=== PATIENT | female | born 1985 | race Caucasian/White ===

== ENCOUNTER 2017-02-17 15:46 | Observation (INO) | payer BC ==
[2017-02-17] MEDS ORDERED: BETAMETHASONE IM SYRINGE IM ONE (16:22)
[2017-02-17] MEDS ORDERED: LR 1,000 ML IV SCH (16:30)
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
--- NOTE | 2017-02-18 10:39 | OBPROG ---
OBG Labor Progress Note Assessment/Plan: Assessment: IUP at 37 wks oligo with improved fluid today. Cat I tracing Plan: D/C home 02/18/17 10:36 Subjective: Pt doing fine. GFM, Freq BH but no change for wks. No bld - no LOF [place] Current Contraction Pattern: Regular, Other (Specify) (BH occas) FHR (bpm): 120 FHR Pattern Variability: Moderate FHR Category: 1 Membranes: Intact - Physical Exam General Appearance: WD/WN Abdomen: soft, other (gravid uterus, BH noted on monitor, CAT I tracing with baseline 120s with accels and mod variability) Extremities: non-tender Skin: warm/dry Neuro/Psych: normal mood/affect Oxytocin Orders Assessment - Pre-Induction/Augmentation Assessment Gestational Age: 36 week(s) and 6 day(s) ICD10 Worksheet Patient Problems: Problems Problem Status Onset Oligohydramnios in third trimester Acute
== END 2017-02-18 11:00 | disposition home or self-care (01) ==
LOC: FLD 15:46
PROVIDERS: ADMIT Obstetrics & Gynecology; ATTEND Obstetrics & Gynecology
DX: O41.03X0 Oligohydramnios, third trimester, not applicable or unspecified (principal); O99.013 Anemia complicating pregnancy, third trimester; D64.9 Anemia, unspecified; Z3A.36 36 weeks gestation of pregnancy
CPT/HCPCS: 59025; 76816; G0378; J0702

== ENCOUNTER 2017-02-23 06:12 | Inpatient (IN) | payer BC ==
[2017-02-23] MEDS ORDERED: OLIVE OIL 118 ML BTL MISC PRN (06:38)
[2017-02-23] MEDS ORDERED: OXYTOCIN/RINGERS LACTATE 1,000 ML IV PRN (06:38)
[2017-02-23] MEDS ORDERED: EPSOM SALT 454 GM TP PRN (06:38)
[2017-02-23] MEDS ORDERED: TERBUTALINE SULFATE 1 MG/ML VIAL IV PRN (06:38)
[2017-02-23 06:54] LABS: % IMMATURE GRANULYOCYTES 0.4 % (0.0-1.1); ABSOLUTE IMMATURE GRANULOCYTES 0.04 10^3/uL (0.00-0.10); ADD DIFF? NO; ADD MORPH? NO; ADD SCAN? NO; ATYPICAL LYMPHOCYTE FLAG 0 (0-99); FRAGMENT RBC FLAG 0 (0-99); HEMATOCRIT 41.1 % (38.0-47.0); LEFT SHIFT FLG 0 (0-99); LIPEMIA HEMOLYSIS FLAG 90 (0-99); MEAN CELL HEMOGLOBIN 33.6 pg (27.9-34.1); MEAN CELL HEMOGLOBIN CONCENTR. 36.5 g/dL (32.4-36.7); MEAN CELL VOLUME 91.9 fL (81.5-99.8); MEAN PLATELET VOLUME 11.1 fL (8.7-11.7); PLATELET CLUMPS FLAG 10 (0-99); PLATELET COUNT 249 10^3/uL (150-400); RED BLOOD CELL COUNT 4.47 10^6/uL (4.18-5.33); RED CELL DISTRIBUTION WIDTH 12.1 % (11.5-15.2)
[2017-02-23] MEDS: LR 1,000 ML IV PRN (08:30)
[2017-02-23] MEDS ORDERED: OXYTOCIN/LR *STANDARD DOSE PROTOCOL IV SCH (09:00)
[2017-02-23] MEDS ORDERED: LR 500 ML IV PRN (13:02)
[2017-02-23] MEDS ORDERED: OXYTOCIN/RINGERS LACTATE 500 ML IV SCH (13:30)
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
--- NOTE | 2017-02-23 18:41 | OBPROG ---
OBG Labor Progress Note Assessment/Plan: Assessment: 31 y/o @ 37 5/7 wks for IOL secondary to oligo Plan: Wilburn bulb removed by RN NELLY /-2 Discussed with unfavorable cervix and Pitocin at 20 mu/min, recommend cervical ripening at this time Will give Cytotec 50 mg orally and then 25 mg q 4hrs Pt may have regular diet FHTs - Cat I tracing Continuous monitoring overnight Start Pitocin again in am 02/2402/23/17 18:38 Subjective: Pt has some cramping. Some discomfort with varicosities in vagina and inguinal hernia. Objective: 02/23/17 06:45 Patient ABO/Rh O POSITIVE 02/23/17 06:45 - SVE Dilation (cm): 1 Effacement (%): 50 Station: -2 Wilson Current Contraction Pattern: Irregular FHR (bpm): 140 FHR Pattern Variability: Moderate FHR Category: 1 Membranes: Intact Oxytocin Orders Assessment - Pre-Induction/Augmentation Assessment Indication: Oligo Presentation: Vertex Gestational Age: 37 week(s) and 5 day(s) Gestational Age Determined By: Ultrasound (confirmesd by first trimester u/s), Last Menstral Period Estimated Weight: 2501-3400g Membrane Status: Intact Current Contraction Pattern: Irregular ICD10 Worksheet Patient Problems: Problems Problem Status Onset Oligohydramnios in third trimester Acute
[2017-02-23] MEDS ORDERED: ZOLPIDEM TARTRATE 5 MG TAB PO PRN (18:56)
[2017-02-23] MEDS ORDERED: MISOPROSTOL 100 MCG TAB PO ONE (19:15)
[2017-02-23] MEDS: MISOPROSTOL 100 MCG TAB PO SCH (23:35)
[2017-02-24] MEDS: LR 1,000 ML IV PRN (07:39)
--- NOTE | 2017-02-24 08:27 | OBPROG ---
OBG Labor Progress Note Assessment/Plan: Assessment:cat1 fhr pain well managed contractions q2-3 minutes apart exam 2-/-1 cephalic pitocin per protocol Plan:discussed pain medication as needed, pitocin per ptoocol, consult physician as needed 02/24/17 08:24 Subjective: Feeling cramping with the contractions Objective: 02/23/17 06:45 Patient ABO/Rh O POSITIVE 02/23/17 06:45 - SVE Dilation (cm): 2 Effacement (%): 80 Station: -1 - Physical Exam General Appearance: WD/WN, alert, no apparent distress Estimated Weight: 2501-3400g Extremities: normal range of motion Skin: normal color, warm/dry Neuro/Psych: no motor/sensory deficits, alert, normal mood/affect, oriented x 3 Oxytocin Orders Assessment - Pre-Induction/Augmentation Assessment Presentation: Vertex Gestational Age: 37 week(s) and 5 day(s) Estimated Weight: 2501-3400g ICD10 Worksheet Patient Problems: Problems Problem Status Onset Oligohydramnios in third trimester Acute
--- NOTE | 2017-02-24 13:33 | OBPROG ---
OBG Labor Progress Note Assessment/Plan: Assessment:cat1 fhr pain well managed contractions q2-3 minutes apart exam 2-/-1 cephalic pitocin per protocol at 18 mu arom clear fluid no change to cervical exam Plan:pitocin per protocol 02/24/17 08:24 02/24/17 13:30 Subjective: I am feeling more regular contractions. My pain is greater since the last time you checked me Objective: 02/23/17 06:45 Patient ABO/Rh O POSITIVE 02/23/17 06:45 - SVE Dilation (cm): 2 Effacement (%): 80 Station: -1 - Procedures Non-surgical Procedures: Amniotomy - Physical Exam Estimated Weight: 2501-3400g Oxytocin Orders Assessment - Pre-Induction/Augmentation Assessment Presentation: Vertex Gestational Age: 37 week(s) and 5 day(s) Estimated Weight: 2501-3400g ICD10 Worksheet Patient Problems: Problems Problem Status Onset Oligohydramnios in third trimester Acute
[2017-02-24] MEDS ORDERED: fentaNYL 100 MCG/2 ML INJ ONE ×2 (14:18→14:49)
[2017-02-24] MEDS ORDERED: fentaNYL 2MCG/ML/BUP 0.1% RTU 100 ML BAG EP ONE (14:48)
[2017-02-24] MEDS ORDERED: PHENYLEPHRINE HCL 100 MCG/ML SYR ONE (14:49)
[2017-02-24] MEDS ORDERED: BUPIVACAINE 0.25% 30 ML SDV ONE (14:49)
[2017-02-24] MEDS ORDERED: fentaNYL 100 MCG/2 ML INJ IVP ONE (14:49)
[2017-02-24] MEDS ORDERED: ONDANSETRON 4 MG/2 ML VIAL IVP PRN (15:44)
[2017-02-24] MEDS ORDERED: PHENYLEPHRINE HCL 100 MCG/ML SYR IVP PRN (15:44)
[2017-02-24] MEDS ORDERED: LR 500 ML IV SCH (16:00)
[2017-02-24] MEDS ORDERED: fentaNYL 2MCG/ML/BUP 0.1% RTU 100 ML EP SCH (16:00)
--- NOTE | 2017-02-24 17:26 | PREANESOB ---
Obstetric Pre-Anesthesia Info - General Info Proposed Procedure: Labor and delivery with pitocin. : 1 Para: 0 WBD: 37 - Info Status: Full Term Monitors: External FHR Baseline (bpm): 140 FHR Pattern: Reassuring - Labor Status Cervical Dilation per last OB SVE: 2 Station per last OB SVE: -1 Pitocin: In Use Indications for Labor Analgesia: Induction of Labor, Pain Control Labor Epidural: Proposed (Oligohydramnios.) Anesthesia ROS: History of oral surgery. Allergies/Adverse Reactions: Allergy/AdvReac Type Severity Reaction Status Date / Time No Known Allergies Allergy Unverified 06/19/11 22:35 Visit Medications: Generic Name Dose Route Start Last Admin Trade Name Freq PRN Reason Stop Dose Admin Diphenhydramine HCl 25 - 50 mg 02/24/17 15:44 Benadryl Injection IVP 08/23/17 15:43 Q6HRS PRN Itching Lactated Ringer's 1,000 mls @ 0 mls/hr 02/23/17 06:38 02/24/17 07:39 Lr IV 08/22/17 06:37 1,000 mls PRN PRN Administration SEE PROTOCOL CONDITIONS Protocol Per Protocol Oxytocin/Lactated Ringer's 1,000 mls @ 150 mls/hr 02/23/17 06:38 Pitocin 20 Units/Lr (Premix) IV PRN PRN Post- bleeding Oxytocin/Lactated Ringer's 500 mls @ 0 mls/hr 02/23/17 09:00 02/23/17 08:50 Pitocin 30 Units/Lr (Premix) IV 08/22/17 08:59 500 mls CONT MAKEDA Administration Protocol Per Protocol Lactated Ringer's 500 mls @ 500 mls/hr 02/23/17 13:02 Lr IV PRN PRN Maternal Hypotension Oxytocin/Lactated Ringer's 500 mls @ 0 mls/hr 02/23/17 13:30 02/24/17 07:39 Pitocin 30 Units/Lr (Premix) IV 08/22/17 13:29 500 mls CONT MAKEDA Administration Protocol Per Protocol Fentanyl/Bupivacaine HCl 100 mls @ 0 mls/hr 02/24/17 16:00 Fentanyl/Bupivacaine/Ns 2 Mcg/Ml 0.1% (Premix EP 07/02/17 15:59 CONT MAKEDA Protocol As Directed Lactated Ringer's 500 mls @ 0 mls/hr 02/24/17 16:00 Lr IV 08/23/17 15:59 CONT [facility] As Directed Ibuprofen 600 mg 02/23/17 06:38 Motrin PO 08/22/17 06:37 Q6HRS PRN post , inflammation Magnesium Sulfate 454 gm 02/23/17 06:38 Epsom Salt TP 08/22/17 06:37 PRN PRN perineal discomfort [place] Oil 118 ml 02/23/17 06:38 Sweet Oil MISC 08/22/17 06:37 ONCE PRN preneal massage Ondansetron HCl 4 mg 02/24/17 15:44 Zofran IVP 08/23/17 15:43 Q4HRS PRN Nausea/Vomiting, Can't Take PO Phenylephrine HCl 100 mcg 02/24/17 15:44 Neosynephrine IVP 08/23/17 15:43 .Q2M PRN Hypotension Terbutaline Sulfate 0.25 mg 02/23/17 06:38 Brethine IV 08/22/17 06:37 ONCE PRN Tachysystole Zolpidem Tartrate 5 mg 02/23/17 18:56 02/23/17 21:35 Ambien PO 08/22/17 18:55 5 mg HS PRN Administration Sleep/Insomnia Discontinued Medications Generic Name Dose Route Start Last Admin Trade Name Freq PRN Reason Stop Dose Admin Bupivacaine HCl Confirm 02/24/17 14:49 Sensorcaine 0.25% Sdv Administered 02/24/17 14:50 Dose 30 ml .ROUTE .STK-MED ONE Fentanyl Confirm 02/24/17 14:18 Sublimaze Administered 02/24/17 14:19 Dose 100 mcg .ROUTE .STK-MED ONE Fentanyl Confirm 02/24/17 14:49 Sublimaze Administered 02/24/17 14:50 Dose 100 mcg .ROUTE .STK-MED ONE Fentanyl 50 mcg 02/24/17 14:49 Sublimaze IVP 02/24/17 14:50 ONCE ONE Fentanyl/Bupivacaine HCl Confirm 02/24/17 14:48 Fentanyl/Bupivacaine/Ns 2 Mcg/Ml 0.1% (Premix Administered 02/24/17 14:49 Dose 100 ml EP .STK-MED ONE Misoprostol 25 mcg 02/23/17 23:15 02/23/17 23:35 Cytotec PO 02/24/17 11:16 25 mcg Q4H MAKEDA Administration Misoprostol 50 mcg 02/23/17 19:15 02/23/17 19:30 Cytotec PO 02/23/17 19:16 50 mcg ONCE ONE Administration Phenylephrine HCl Confirm 02/24/17 14:49 Neosynephrine Administered 02/24/17 14:50 Dose 1,000 mcg .ROUTE .STK-MED ONE - Anesthesia History Response to Local Anesthetics: Normal Anesthesia & Operative History: No Prior Problems Family Anesthesia History: Negative - Social History Substance Use/Abuse: Denies - Focused Exam Blood Pressure: 110/57 Heart Rate: 77 Height/Weight (Nursing): Height 177.8 cm Weight 75.977 kg Physical Exam: Within normal limits. ASA Status: II Labs: 02/23/17 06:45 Patient ABO/Rh O POSITIVE 02/23/17 06:45 - Plan Anesthetic Plan: CSE Consent Signed and on Chart: Yes Patient/Guardian Understands and Agrees to Plan: Yes
--- NOTE | 2017-02-24 17:30 | POSTANESTH ---
Post Anesthetic Evaluation Cardiovascular Status: Normal, Stable, Similar to Pre-Op Cond Respiratory Status: Normal, Stable, Similar to Pre-op Cond. Level of Consciousness/Mental Status: Can Participate in Eval, Alert and Oriented Pain Control: Adequate, Prn Tx Ordered Nausea/Vomiting Control: Adequate, Prn Tx Ordered Complications Possibly Related to Anesthesia: None Noted
--- NOTE | 2017-02-24 17:42 | OBPROG ---
OBG Labor Progress Note Assessment/Plan: Assessment:cat1 fhr pain well managed contractions q2-3 minutes apart exam 6/100/0 cephalic pitocin per protocol at 10 mu/ turned down tachsystole/ tachcardia clear fluid epidural for pain relief working well iupc adequete contractions Plan:pitocin per protocol 02/24/17 08:24 02/24/17 13:30 02/24/17 17:40 Objective: 02/23/17 06:45 Patient ABO/Rh O POSITIVE 02/23/17 06:45 Temp Pulse Resp BP Pulse Ox 77 110/57 L 02/24/17 17:29 02/24/17 17:29 - SVE Dilation (cm): 6 Effacement (%): 100 Station: 0 - Physical Exam Estimated Weight: 2501-3400g Oxytocin Orders Assessment - Pre-Induction/Augmentation Assessment Presentation: Vertex Gestational Age: 37 week(s) and 5 day(s) Estimated Weight: 2501-3400g ICD10 Worksheet Patient Problems: Problems Problem Status Onset Oligohydramnios in third trimester Acute
--- NOTE | 2017-02-24 18:04 | OBPROG ---
OBG Labor Progress Note Assessment/Plan: Assessment:cat1 fhr pain well managed contractions q2-3 minutes apart exam 9/100/0 cephalic pitocin per protocol at 5mu clear fluid continues from vagina epidural for pain relief working well iupc adequete contractions Plan:consulted with dr. king with change in cervix 02/24/17 08:24 02/24/17 13:30 02/24/17 17:40 02/24/17 18:03 Objective: 02/23/17 06:45 Patient ABO/Rh O POSITIVE 02/23/17 06:45 Temp Pulse Resp BP Pulse Ox 77 110/57 L 02/24/17 17:29 02/24/17 17:29 - SVE Dilation (cm): 9 Effacement (%): 100 Station: 0 - Procedures Non-surgical Procedures: Amniotomy - Physical Exam Estimated Weight: 2501-3400g Oxytocin Orders Assessment - Pre-Induction/Augmentation Assessment Presentation: Vertex Gestational Age: 37 week(s) and 5 day(s) Estimated Weight: 2501-3400g ICD10 Worksheet Patient Problems: Problems Problem Status Onset Oligohydramnios in third trimester Acute
--- NOTE | 2017-02-24 20:09 | OBPROG ---
OBG Labor Progress Note Assessment/Plan: Assessment:cat2 fhr pain well managed contractions q4-6 minutes apart exam 10/100/+1 cephalic pitocin per protocol at 5mu/ incresing mvus not adequete clear fluid continues from vagina epidural for pain relief working well Plan:expectant management laboring down 02/24/17 08:24 02/24/17 13:30 02/24/17 17:40 02/24/17 18:03 02/24/17 20:08 Objective: 02/23/17 06:45 Patient ABO/Rh O POSITIVE 02/23/17 06:45 Temp Pulse Resp BP Pulse Ox 77 110/57 L 02/24/17 17:29 02/24/17 17:29 - SVE Dilation (cm): 10 Effacement (%): 100 Station: +1 - Procedures Non-surgical Procedures: Amniotomy - Physical Exam Estimated Weight: 2501-3400g Oxytocin Orders Assessment - Pre-Induction/Augmentation Assessment Presentation: Vertex Gestational Age: 37 week(s) and 5 day(s) Estimated Weight: 2501-3400g ICD10 Worksheet Patient Problems: Problems Problem Status Onset Oligohydramnios in third trimester Acute
[2017-02-24] MEDS ORDERED: HYDROCORTISONE 0.5% CREAM TP PRN (22:40)
[2017-02-24] MEDS ORDERED: HYDROCODONE/APAP 5/325 TAB PO PRN (22:40)
[2017-02-24] MEDS ORDERED: SIMETHICONE 80 MG TAB CHEW PO PRN (22:40)
--- NOTE | 2017-02-24 22:40 | OBDEL ---
Info Type: Vaginal GBS+: No Indications for Delivery: Oligohydramnios Vaginal Delivery - Labor and Delivery Onset of Contractions Date: 02/24/17 Onset of Contractions Time: 08:50 Onset of Contractions Type: Induced Rupture of Membranes Date: 02/24/17 Rupture of Membranes Time: 13:27 Rupture of Membranes Type: Artificial Amniotic Fluid Color: Clear Dilation Complete Date: 02/24/17 Dilation Complete Time: 19:40 Placenta Delivery Date: 02/24/17 Placenta Delivery Time: 22:15 Total Hours of Labor: 13 Non-surgical Procedures: Amniotomy Laceration: Other (Specify) (bilateral periurethral repaired the right) Repair: 4-0, Vicryl Vaginal Sponge Count Correct: Yes Vaginal Sweep Performed: Yes EBL: 300 Delivery Events: None - Medications Labor Augmentation/Induction Methods Used: Pitocin, Misoprostol, Wilburn Bulb Labor Augmentation/Induction Indication: Medical (oligohydramnios) Data [place] Delivery Date: 02/24/17 Delivery Time: 19:40 Sex of Infant: Male Score (1 Min): 8 Score (5 Min): 9 ICD10 Worksheet Patient Problems: Problems Problem Status Onset Oligohydramnios in third trimester Acute
[2017-02-24] MEDS: IBUPROFEN 600 MG TAB PO PRN (23:03)
[2017-02-24] MEDS: MISOPROSTOL 100 MCG TAB PO SCH (23:35)
[2017-02-25 03:16] VITALS: RESP 16
[2017-02-25] MEDS: IBUPROFEN 600 MG TAB PO PRN ×4 (05:14→23:49)
--- NOTE | 2017-02-25 07:01 | OBPP ---
Progress Note Assessment/Plan: Assessment: in and out catheter after delivery 1800cc obtained call from nurse on pp at 0600 needing to cath patient again unable to void alvarado placed 1800 cc out over 30 minutes. will observe output over the next hour to see amount Plan:alvarado, routine output assessement/ report to dr. martinez on poc 02/24/17 08:24 02/24/17 13:30 02/24/17 17:40 02/24/17 18:03 02/24/17 20:08 02/25/17 06:58 Objective: 02/24/17 06:30 Patient ABO/Rh O POSITIVE 02/23/17 06:45 Temp Pulse Resp BP Pulse Ox 36.9 C 56 L 16 115/72 02/25/17 03:10 02/25/17 03:10 02/25/17 03:10 02/25/17 03:10
--- NOTE | 2017-02-25 07:38 | OBPP ---
Progress Note Assessment/Plan: Assessment: 1) s/p PPD # 1 - pt is stable Plan: Continue routine pp care To keep alvarado in place for now; pt unable to void likely secondary to swelling from varicosity and delivery Output - 1800 cc this am Ice pack to bottom prn Will cont to closely monitor consult today 02/25/17 07:42 Subjective: Pt seen and examined. Doing well, with no complaints. She is having some cramping, relief with Motrin. Moderate lochia. Alvarado in place. Passing flatus. No BM. BF with some difficulty. Objective: 02/24/17 06:30 Patient ABO/Rh O POSITIVE 02/23/17 06:45 Temp Pulse Resp BP Pulse Ox 36.9 C 56 L 16 115/72 02/25/17 03:10 02/25/17 03:10 02/25/17 03:10 02/25/17 03:10 Uterine Position/Fundal Height: Umbilicus -2 Uterine Tone: Firm Physical Exam - Physical Exam General Appearance: WD/WN, alert, no apparent distress Respiratory: lungs clear, normal breath sounds Cardiac/Chest: regular rate, rhythm Abdomen: normal bowel sounds, non-tender, soft, flatus (+) Extremities: non-tender, normal inspection Skin: normal color, warm/dry Neuro/Psych: alert, normal mood/affect, oriented x 3
[2017-02-25] MEDS: DOCUSATE SODIUM 100 MG CAP PO PRN (09:12)
[2017-02-25] MEDS: ACETAMINOPHEN 325 MG TAB PO PRN ×3 (14:33→23:49)
[2017-02-25 19:57] VITALS: O2SAT 100
[2017-02-26] MEDS: ACETAMINOPHEN 325 MG TAB PO PRN (04:22)
[2017-02-26] MEDS: IBUPROFEN 600 MG TAB PO PRN ×2 (05:58→11:58)
[2017-02-26 10:10] VITALS: BP 113/72; PULSE 62; TEMP 97
--- NOTE | 2017-02-26 11:35 | OBPP ---
Progress Note Assessment/Plan: Assessment: well /soreness with ff@u scant rubra lochia hemorroids left labial varacosity voiding without difficulty Plan:discharge to home with instructions fu 4 and 6 weeks, pericare, pain management, hemorroid management, ss infection, contraceptives, pelvic rest, rest, exercise, bleeding patterns, verbalized understanding of all of the above 02/24/17 08:24 02/24/17 13:30 02/24/17 17:40 02/24/17 18:03 02/24/17 20:08 02/25/17 06:58 02/26/17 11:32 Subjective: Doing well. Denies difficties today. soreness. Objective: 02/24/17 06:30 Patient ABO/Rh O POSITIVE 02/23/17 06:45 Temp Pulse Resp BP Pulse Ox 36.1 C 62 16 113/72 100 02/26/17 10:10 02/26/17 10:10 02/26/17 10:10 02/26/17 10:10 02/25/17 19:56 Uterine Position/Fundal Height: At Umbilicus Uterine Tone: Firm Physical Exam - Physical Exam General Appearance: WD/WN, alert, no apparent distress Abdomen: other (ff@u) Extremities: normal range of motion, other (scant rubra lochia) DTR- Lower Extremities: Knee (R): 1+, Knee (L): 1+ (no clonus) Skin: normal color, warm/dry Neuro/Psych: no motor/sensory deficits, alert, normal mood/affect, oriented x 3
[2017-02-26] MEDS ORDERED: MEASLES,MUMPS&RUBELLA VACC/PF 0.5 ML VIAL SC ONE (11:37)
--- NOTE | 2017-02-26 11:40 | OBGCSDC ---
General Delivery Information - General Info : 1 Para: 1 Delivery Physician/CNM: Bethany Elkins Labs: Patient ABO/Rh O POSITIVE 02/23/17 06:45 Hct 39.8 % (38.0-47.0) 02/24/17 06:30 Vaginal - Diagnosis Labor: Induced Rupture of Membranes Type: Artificial Amniotic Fluid Color: Clear Laceration: Other (Specify) (bilateral periurethral repaired the right) Repair: 4-0, Vicryl Delivery Events: None - Operations/Procedures Non-surgical Procedures: Amniotomy L&D Analgesia/Anesthesia Type: Epidural - Hospital Course Antepartum: OLigohydramios Intrapartum: IOL for oligo hydramnios, vaginal delivery repair of right periurthral , left hemostatic : Doing well, pain well managed, hemorroids, right labial varcosity no damage during delivery, - Delivery Non-surgical Procedures: Amniotomy L&D Analgesia/Anesthesia Type: Epidural [place] Data [place] Delivery Date: 02/24/17 Delivery Time: 22:08 RACHEL: 03/11/17 Gestational Age: 38 week(s) and 1 day(s) Sex of : Male [place] Weight (gm): 2932 g Score (1 Min): 8 Score (5 Min): 9 Discharge Information - Discharge Information Condition: Good
[2017-02-26] MEDS: DOCUSATE SODIUM 100 MG CAP PO PRN (11:58)
== END 2017-02-26 12:15 | disposition home or self-care (01) | DRG 775 ==
LOC: FLD 06:12 → FOB 02-25 01:37
PROVIDERS: ADMIT Obstetrics & Gynecology; ATTEND Obstetrics & Gynecology
DX: O41.03X0 Oligohydramnios, third trimester, not applicable or unspecified (principal); Z37.0 Single live birth; Z3A.37 37 weeks gestation of pregnancy; O71.82 Other specified trauma to perineum and vulva
CPT/HCPCS: G0463; J2370; J2590; J3010

== ENCOUNTER → 2017-04-26 | Outpatient (CLI) | payer BC | LOC: FIMAGING 07:36 | PROVIDERS: ATTEND Radiology Diagnostic Radiology | DX: Z01.818 Encounter for other preprocedural examination (principal); N94.89 Other specified conditions associated with female genital organs and menstrual cycle; I87.2 Venous insufficiency (chronic) (peripheral) ==

== ENCOUNTER → 2017-10-17 | Outpatient (CLI) | payer OTHER | LOC: FIMAGING 07:44 | PROVIDERS: ATTEND Radiology Diagnostic Radiology | DX: I87.2 Venous insufficiency (chronic) (peripheral) (principal); I86.3 Vulval varices ==

== ENCOUNTER 2018-06-30 11:11 | Day surgery (SDC) | payer OTHER ==
[2018-06-30] MEDS ORDERED: HEPARIN 10,000 UNIT/10 ML MDV (1,000 UNIT/ML) IVP PRN (11:25)
[2018-06-30] MEDS ORDERED: MEPERIDINE 25 MG/ML SYR IVP PRN (11:25)
[2018-06-30] MEDS ORDERED: ALTEPLASE 2 MG VIAL IVP PRN (11:25)
[2018-06-30] MEDS ORDERED: MIDAZOLAM 2 MG/2 ML VIAL IVP PRN (11:25)
[2018-06-30] MEDS ORDERED: PROTAMINE SULFATE 50 MG/5 ML VIAL IVP PRN (11:25)
[2018-06-30] MEDS ORDERED: GLUCAGON HCL 1 MG VIAL IVP PRN (11:25)
[2018-06-30] MEDS ORDERED: fentaNYL 100 MCG/2 ML INJ IVP PRN (11:25)
[2018-06-30] MEDS ORDERED: NALOXONE HCL 0.4 MG/ML INJ IVP PRN (11:25)
[2018-06-30] MEDS ORDERED: FLUMAZENIL 0.5 MG/5 ML MDV IVP PRN (11:25)
[2018-06-30] MEDS ORDERED: NS 1,000 ML IV SCH (11:30)
[2018-06-30 12:14] LABS: INR 1.02 (0.83-1.16); PROTIME(PATIENT) 13.6 SEC (12.0-15.0)
--- NOTE | 2018-06-30 14:24 | PDGENHP ---
History & Physical Chief Complaint: SEVERE PELVIC PAIN History of Present Illness: severe pelvic pain. s/p prior LLE varicose vein treatment. pelvic pain worsening. Pertinent Past, Social, Family History: n/a Relevant Physical Exam: pelvic pain and congestion Cardiorespiratory Assessment: rrr, cta
[2018-06-30] MEDS ORDERED: NALOXONE HCL 0.4 MG/ML INJ ONE (14:26)
[2018-06-30] MEDS ORDERED: FLUMAZENIL 0.5 MG/5 ML MDV IVP ONE (14:26)
--- NOTE | 2018-06-30 14:26 | PDPROPOC ---
Sedation Plan of Care Sedation Plan of Care: vital signs stable, mental status noted, patient educated of risks, benefits, alternatives, patient can tolerate sedation ASA Classification: ASA 1 Planned drugs: fentanyl, midazolam Mallampati Score: Class 1 Mallampati Reference Image: Patient passed 3-3-2 rule?: Yes
[2018-06-30] MEDS ORDERED: MIDAZOLAM 2 MG/2 ML VIAL ONE ×2 (14:27→15:06)
[2018-06-30] MEDS ORDERED: fentaNYL 100 MCG/2 ML INJ ONE ×2 (14:27→15:06)
[2018-06-30] MEDS ORDERED: IOPAMIDOL (ISOVUE-300) 100 ML BTL ONE ×2 (14:33→16:45)
[2018-06-30] MEDS ORDERED: SODIUM TETRADECYL SULFATE 3% 2 ML VIAL IV ONE (14:33)
[2018-06-30] MEDS ORDERED: ONDANSETRON 4 MG/2 ML VIAL IVP PRN (16:39)
[2018-06-30] MEDS ORDERED: ACETAMINOPHEN 325 MG TAB PO PRN (16:39)
[2018-06-30 17:01] VITALS: BP 103/58
== END 2018-06-30 17:30 | disposition home or self-care (01) ==
LOC: FIMAGING 11:11
PROVIDERS: ATTEND Radiology Diagnostic Radiology
DX: I86.2 Pelvic varices (principal); N94.89 Other specified conditions associated with female genital organs and menstrual cycle; R10.2 Pelvic and perineal pain
CPT/HCPCS: 36012; 37241; 75736; 76937; 99152; 99153; C1769; C1892; J1644; J2250; J2310; J3010; Q9967

== ENCOUNTER → 2018-06-30 | Day surgery (SDC) | payer SELFPAY | END | disposition home or self-care (01) | LOC: FIMAGING 08:00 | PROVIDERS: ATTEND Radiology Diagnostic Radiology | PROC: 3E033TZ Introduction of Destructive Agent into Peripheral Vein, Percutaneous Approach (ICD-10-PCS; principal; 2018-06-30) | DX: I86.2 Pelvic varices (principal); N94.89 Other specified conditions associated with female genital organs and menstrual cycle; R10.2 Pelvic and perineal pain ==

== ENCOUNTER → 2018-08-03 | Outpatient (CLI) | payer OTHER | LOC: FIMAGING 16:03 | PROVIDERS: ATTEND Radiology Diagnostic Radiology | DX: Z53.29 Procedure and treatment not carried out because of patient's decision for other reasons (principal) ==

== ENCOUNTER → 2018-08-30 | Outpatient (CLI) | payer OTHER | LOC: FIMAGING 08:57 | PROVIDERS: ATTEND Radiology Diagnostic Radiology | DX: Z09 Encounter for follow-up examination after completed treatment for conditions other than malignant neoplasm (principal) ==